=== PATIENT | male | born 1935 ===

== ENCOUNTER 2017-06-06 10:27 | Inpatient (IN) | payer MEDICARE, OTHER ==
[2017-06-06] MEDS ORDERED: Sodium Chloride 0.9% 500 ML IV STA (11:29)
[2017-06-06 11:46] LABS: BASO % 0.8 % (0.0-2.0); EOS # 0.1 K/uL (0.0-0.7); EOS % 1.1 % (0.0-4.0); HEMATOCRIT 40.1 % (35.0-51.0); LYMPH # 1.5 K/uL (1.0-4.3); LYMPH % 31.1 % (20.0-40.0); MEAN CELL VOLUME 94.3 fL (80.0-94.0); MEAN CORPUSCULAR HEMOGLOBIN 32.3 pg (27.0-31.0); MEAN CORPUSCULAR HGB CONC 34.3 g/dL (33.0-37.0); MEAN PLATELET VOLUME 8.7 fL (7.2-11.7); MONO # 0.6 K/uL (0.0-0.8); MONO % 11.2 % (0.0-10.0); NRBC % 0.1 % (0.0-2.0); WHITE BLOOD COUNT 4.9 K/uL (4.8-10.8)
[2017-06-06 11:47] LABS: RBC URINE 30 /hpf (0-3); URINE BACTERIA RARE (<OCC); URINE BILIRUBIN NEGATIVE (NEGATIVE); URINE BLOOD 3+ (NEGATIVE); URINE COLOR Yellow (YELLOW); URINE GLUCOSE (UA) NORMAL (Normal); URINE KETONE NEGATIVE (NEGATIVE); URINE LEUKOCYTE ESTERASE TRACE Leu/uL (Negative); URINE PROTEIN NEGATIVE (NEGATIVE); URINE UROBILINOGEN NORMAL mg/dL (0.2-1.0); WBC URINE 7 /hpf (0-5)
[2017-06-06 11:52] LABS: POTASSIUM 4.2 mmol/L (3.6-5.2)
[2017-06-06 11:54] LABS: BILIRUBIN,TOTAL 0.8 mg/dL (0.2-1.3)
[2017-06-06 11:55] LABS: TOTAL PROTEIN 8.8 g/dL (6.3-8.3)
[2017-06-06 11:56] LABS: CALCIUM 9.5 mg/dl (8.6-10.4)
--- NOTE | 2017-06-06 12:50 | C.PDOC ---
History Of Present Illness 81 y/o male presents to the ED c/o intermittent right flank pain for a week and hematuria since yesterday. Patient notes pain is better now. Denies fever. No nausea or vomiting. Time Seen by Provider: 06/06/17 10:46 Chief Complaint (Nursing): Male Genitourinary History Per: Patient History/Exam Limitations: no limitations Onset/Duration Of Symptoms: Days (Right flank for 1 week. Hematuria since yesterday.), Intermittent Episodes Current Symptoms Are (Timing): Still Present Severity: Mild Quality Of Discomfort: "Pain" Associated Symptoms: Other (hematuria) Recent travel outside of the [place]: No Additional History Per: Patient Past Medical History Reviewed: Historical Data, Nursing Documentation, Vital Signs Vital Signs: Last Vital Signs Temp 97.4 F L 06/06/17 16:30 Pulse 80 06/06/17 16:30 Resp 20 06/06/17 16:30 BP 145/77 06/06/17 16:30 Pulse Ox 96 06/06/17 16:30 - Medical History PMH: HTN, Hypercholesterolemia Surgical History: Tonsillectomy Family History: States: Unknown Family Hx - Social History Hx Alcohol Use: No Hx Substance Use: No - Immunization History Hx Tetanus Toxoid Vaccination: No Hx Influenza Vaccination: Yes Hx Pneumococcal Vaccination: Yes Review Of Systems Except As Marked, All Systems Reviewed And Found Negative. Constitutional: Negative for: Fever Gastrointestinal: Negative for: Nausea, Vomiting Genitourinary: Positive for: Hematuria, Other (Right flank pain) Physical Exam - Physical Exam Appears: Non-toxic, No Acute Distress Skin: Warm, Dry Head: Atraumatic, Normacephalic Oral Mucosa: Moist Cardiovascular: Rhythm Regular Respiratory: Normal Breath Sounds, No Rales, No Rhonchi, No Wheezing Gastrointestinal/Abdominal: Soft, No Tenderness Back: Normal Inspection, No CVA Tenderness Neurological/Psych: Oriented x3, Normal Speech, Normal Cognition ED Course And Treatment - Laboratory Results Result Diagrams: 06/06/17 11:37 06/06/17 11:37 O2 Sat by Pulse Oximetry: 98 (RA) Pulse Ox Interpretation: Normal - CT Scan/US Abdomen/pelvis CT Other Rad Studies (CT/US): Read By Radiologist, Radiology Report Reviewed CT/US Interpretation: Accession No. : [id number]. Patient Name / ID : BERTHA DENIS / [id number]. Exam Date : 06/06/2017 11:48:07 ( Approved ). Study Comment : Sex / Age : M / 81Y. Creator : Nancy Baxter MD. Dictator : [employer] : Founder & Ceo : Nancy Baxter MD. Approver2 : Report Date : 06/06/2017 12:57:13. My Comment : . PROCEDURE: CT Abdomen and Pelvis without Oral or IV contrast. HISTORY: R flank pain/hematuria. COMPARISON: None available. TECHNIQUE: Contiguous axial images of the abdomen and pelvis. No oral or IV contrast administered. Coronal and Sagittal reformats generated and reviewed. Radiation dose: Total exam DLP = 375.36 mGy- cm. This CT exam was performed using one or more of the following dose reduction techniques: Automated exposure control, adjustment of the mA and/or kV according to patient size, and/or use of iterative reconstruction technique. FINDINGS: There is limited evaluation of the solid organs without the administration of IV contrast. LOWER THORAX: No visible consolidation, pleural effusion, or pneumothorax. LIVER: Unremarkable. GALLBLADDER AND BILE DUCTS: Unremarkable. PANCREAS: Unremarkable. SPLEEN: Unremarkable. ADRENALS: Unremarkable. KIDNEYS AND URETERS: 7 mm mid right ureteral calculus (series 3, image 91) with mild to moderate proximal hydroureteronephrosis. 2 mm punctate right renal calculus, nonobstructing. Left kidney appears unremarkable except for probable lower pole parapelvic cyst. BLADDER: The urinary bladder appears unremarkable. REPRODUCTIVE: The prostate gland measures approximately 3.4 x 4.1 cm. APPENDIX: The appendix appears within normal limits of caliber. No secondary signs of acute appendicitis. BOWEL: The stomach is nondistended. Lack of oral contrast limits evaluation for bowel pathology. The bowel loops appear within normal limits of caliber without evidence of intestinal obstruction. Diverticulosis without CT evidence of acute diverticulitis. PERITONEUM: No significant free fluid. No definite free air. LYMPH NODES: No bulky lymphadenopathy identified. VASCULATURE: Atherosclerotic calcifications of the aorta and branches. No aortic aneurysm. BONES: Multilevel degenerative changes. Mild curvature of the lumbar spine convex to the left. OTHER FINDINGS: Bilateral inguinal hernias containing fat and vessels. 7 mm fat containing umbilical hernia. IMPRESSION: 7 mm mid right ureteral calculus with mild to moderate proximal hydroureteronephrosis. 2 mm punctate right renal calculus, nonobstructing. Additional incidental findings as above. Progress Note: Plans: CT abd/Pel w/o contrast, IV fluids, UA, blood work up. Patient refused pain medication, stating he is "not in pain now". case was d/w urolgist who sts he will do stent tomorrow and requests patient to be NPO after midnight. Case was d/w pt's PMD who accepted patient to her service for admission. Cipro and Flomax po were ordered. Disposition - Disposition Disposition: HOSPITALIZED Disposition Time: 14:06 Condition: FAIR - Clinical Impression Clinical Impression: Ureterolithiasis, Hydronephrosis - Scribe Statement The provider has reviewed the documentation as recorded by the Scribe Lev lentz All medical record entries made by the Scribe were at my direction and personally dictated by me. I have reviewed the chart and agree that the record accurately reflects my personal performance of the history, physical exam, medical decision making, and the department course for this patient. I have also personally directed, reviewed, and agree with the discharge instructions and disposition. Decision To Admit - Pt Status Changed To: Hospital Disposition Of: Inpatient - Admit Certification Admit to Inpatient:: After my assessment, the patient will require hospitalization for at least two midnights. This is because of the severity of symptoms shown, intensity of services needed, and/or the medical risk in this patient being treated as an outpatient. - InPatient: Physician Admission Certification: I certify that this patient requires 2 or more midnights of care for the following reason:: Patient will need OR procedure. - . Bed Request Type: Regular Patient Diagnosis: Ureterolithiasis, Hydronephrosis
--- NOTE | 2017-06-06 12:58 | CT ---
PROCEDURE: CT Abdomen and Pelvis without Oral or IV contrast. HISTORY: R flank pain/hematuria COMPARISON: None available. TECHNIQUE: Contiguous axial images of the abdomen and pelvis. No oral or IV contrast administered. Coronal and Sagittal reformats generated and reviewed. Radiation dose: Total exam DLP = 375.36 mGy-cm. This CT exam was performed using one or more of the following dose reduction techniques: Automated exposure control, adjustment of the mA and/or kV according to patient size, and/or use of iterative reconstruction technique. FINDINGS: There is limited evaluation of the solid organs without the administration of IV contrast. LOWER THORAX: No visible consolidation, pleural effusion, or pneumothorax. LIVER: Unremarkable. GALLBLADDER AND BILE DUCTS: Unremarkable. PANCREAS: Unremarkable. SPLEEN: Unremarkable. ADRENALS: Unremarkable. KIDNEYS AND URETERS: 7 mm mid right ureteral calculus (series 3, image 91) with mild to moderate proximal hydroureteronephrosis. 2 mm punctate right renal calculus, nonobstructing. Left kidney appears unremarkable except for probable lower pole parapelvic cyst. BLADDER: The urinary bladder appears unremarkable. REPRODUCTIVE: The prostate gland measures approximately 3.4 x 4.1 cm. APPENDIX: The appendix appears within normal limits of caliber. No secondary signs of acute appendicitis. BOWEL: The stomach is nondistended. Lack of oral contrast limits evaluation for bowel pathology. The bowel loops appear within normal limits of caliber without evidence of intestinal obstruction. Diverticulosis without CT evidence of acute diverticulitis. PERITONEUM: No significant free fluid. No definite free air. LYMPH NODES: No bulky lymphadenopathy identified. VASCULATURE: Atherosclerotic calcifications of the aorta and branches. No aortic aneurysm. BONES: Multilevel degenerative changes. Mild curvature of the lumbar spine convex to the left. OTHER FINDINGS: Bilateral inguinal hernias containing fat and vessels. 7 mm fat containing umbilical hernia. IMPRESSION: 7 mm mid right ureteral calculus with mild to moderate proximal hydroureteronephrosis. 2 mm punctate right renal calculus, nonobstructing. Additional incidental findings as above.
--- NOTE | 2017-06-06 16:26 | CP.PCM.HP ---
History of Present Illness - History of Present Illness History of Present Illness: cc: right flank pain PT is an 81 year old male well know to me who presented to the ER with a 6 days history of right flank and right mid to lower abd/pelvic pain. PT noted gross hematuria last night and decided to come to the ER. Pt denies any trauma or fever. Pt denies dysuria but has noted some difficulty voding. Pt has a history of prostate surgery in 1993 due to "enlarged prostate" but denies cancer. In the ER createnine noted to be 1.6, base line 1.3. Pt found to have a UG stone and unilateral hydro. Socia: no tob or etoh Family; parents deseased allergy: nkda PMH: hypertension elevated cholesterol ho prostate surgery for "big prostate" denies ho ca Vertigo Insominia Gastritis Meds; Diovan hctz 80/12.5 mg po qd. zocor 20mg daily Omeprazole 40m po qd Meclizine 25 mg pro prn Temazepam 15 qsh prn insomnia Present on Admission - Present on Admission Any Indicators Present on Admission: No Review of Systems - Constitutional Constitutional: absent: Chills, Fever, Headache, Malaise, Night Sweats, Weight Loss - Cardiovascular Cardiovascular: absent: Chest Pain with Activity, Dyspnea on Exertion - Respiratory Respiratory: absent: Cough - Gastrointestinal Gastrointestinal: Abdominal Pain. absent: Constipation, Diarrhea - Genitourinary Genitourinary: Difficulty Urinating, Hematuria. absent: Freq UTI - Reproductive: Male Reproductive:Male: Pelvic Pain - Musculoskeletal Musculoskeletal: absent: Muscle Cramps, Muscle Weakness - Neurological Neurological: absent: Abnormal Gait, Behavioral Changes - Psychiatric Psychiatric: absent: Behavioral Changes Past Patient History - Past Social History Smoking Status: Never Smoked - CARDIAC Hx Hypercholesterolemia: Yes Hx Hypertension: Yes - ENDOCRINE/METABOLIC Hx Diabetes Mellitus Type 2: Yes (NO MEDS) - PSYCHIATRIC Hx Substance Use: No - SURGICAL HISTORY Hx Tonsillectomy: Yes - ANESTHESIA Hx Anesthesia: Yes Hx Anesthesia Reactions: No Meds Allergies/Adverse Reactions: Allergies Allergy/AdvReac Type Severity Reaction Status Date / Time No Known Allergies Allergy Verified 06/06/17 10:36 Physical Exam - Constitutional Appears: Non-toxic, No Acute Distress - Head Exam Head Exam: NORMAL INSPECTION - Eye Exam Eye Exam: EOMI, Normal appearance - ENT Exam ENT Exam: Mucous Membranes Moist - Respiratory Exam Respiratory Exam: Clear to Auscultation Bilateral - Cardiovascular Exam Cardiovascular Exam: REGULAR RHYTHM, RRR, +S1 - GI/Abdominal Exam GI & Abdominal Exam: Normal Bowel Sounds, Soft. absent: Guarding, Hyperactive Bowel Sounds, Pulsatile Mass, Rebound, Tenderness - Rectal Exam Rectal Exam: Deferred - Extremities Exam Extremities exam: Positive for: full ROM. Negative for: joint swelling, pedal edema Results - Vital Signs Recent Vital Signs: Last Vital Signs Temp 97.5 F L 06/06/17 10:33 Pulse 69 06/06/17 15:50 Resp 18 06/06/17 15:50 BP 114/62 06/06/17 15:50 Pulse Ox 96 06/06/17 15:50 - Labs Result Diagrams: 06/06/17 11:37 06/06/17 11:37 Labs: Laboratory Results - last 24 hr 06/06/17 06/06/17 06/06/17 11:37 11:37 11:37 WBC 4.9 RBC 4.25 L Hgb 13.8 Hct 40.1 MCV 94.3 H MCH 32.3 H MCHC 34.3 RDW 13.0 Plt Count 262 MPV 8.7 Neut % (Auto) 55.8 Lymph % (Auto) 31.1 [place] % (Auto) 11.2 H Eos % (Auto) 1.1 Baso % (Auto) 0.8 Neut # 2.8 Lymph # 1.5 [place] # 0.6 Eos # 0.1 Baso # 0.0 Sodium 140 Potassium 4.2 Chloride 100 Carbon Dioxide 23 Anion Gap 21 H BUN 37 H Creatinine 1.6 H Est GFR ( Amer) 50 Est GFR (Non-Af Amer) 42 Random Glucose 97 Calcium 9.5 Total Bilirubin 0.8 AST 28 ALT 36 Alkaline Phosphatase 69 Total Protein 8.8 H Albumin 4.3 Globulin 4.5 H Albumin/Globulin Ratio 1.0 Urine Color Yellow Urine Clarity Hazy Urine pH 5.0 Ur Specific [place] 1.018 Urine Protein Negative Urine Glucose (UA) Normal Urine Ketones Negative Urine Blood 3+ H Urine Nitrate Negative Urine Bilirubin Negative Urine Urobilinogen Normal Ur Leukocyte Esterase Trace Urine WBC (Auto) 7 H Urine RBC (Auto) 30 H Ur Squamous Epith Cells 4 Urine Bacteria Rare Assessment & Plan - Assessment and Plan (Free Text) Assessment: Acute unilateral hydroneprhosis renal stone pre renal azotemia , base line creat 1.3 hematuria Hth Plan: admit hydrate urolgy consul IVF urine culture gi and dvt prophylaxis
[2017-06-06] MEDS: Sodium Chloride 0.45% 1,000 ML IV SCH (17:59)
[2017-06-07] MEDS: Sodium Chloride 0.45% 1,000 ML IV SCH (07:18)
[2017-06-07] MEDS ORDERED: Iohexol 240 (50 ml) ONE (07:29)
[2017-06-07 08:18] LABS: CHLORIDE 100 mmol/L (98-107); SODIUM 141 mmol/L (132-148)
[2017-06-07 08:19] LABS: POTASSIUM 3.9 mmol/L (3.6-5.2)
[2017-06-07 08:21] LABS: GFR AFRICAN-AMERICAN > 60
[2017-06-07 08:22] LABS: BLOOD UREA NITROGEN 27 mg/dL (9-20); CALCIUM 9.4 mg/dl (8.6-10.4); CARBON DIOXIDE 26 mmol/L (22-30); GLUCOSE,RANDOM 107 mg/dL (75-110)
[2017-06-07] MEDS ORDERED: Pantoprazole 20 mg EC Tab PO SCH (10:00)
[2017-06-07] MEDS ORDERED: Lactated Ringer's 1,000 ML IV ONE ×2 (10:35)
[2017-06-07] MEDS ORDERED: cefTRIAXone IV 1 gm in Dextros 50 ML IVPB ONE (11:19)
[2017-06-07] MEDS ORDERED: Lidocaine 2% Jelly (Uro-Jet) ONE (11:19)
[2017-06-07] MEDS ORDERED: Propofol 10 mg/ml Inj (20 ML) ONE (11:46)
--- NOTE | 2017-06-07 11:46 | CP.PCM.CON ---
Past Patient History - Past Medical History & Family History Past Medical History?: Yes - Past Social History Smoking Status: Never Smoked - CARDIAC Hx Hypercholesterolemia: Yes Hx Hypertension: Yes - ENDOCRINE/METABOLIC Hx Diabetes Mellitus Type 2: Yes (NO MEDS) - MUSCULOSKELETAL/RHEUMATOLOGICAL Hx Falls: No - PSYCHIATRIC Hx Substance Use: No - SURGICAL HISTORY Hx Tonsillectomy: Yes - ANESTHESIA Hx Anesthesia: Yes Hx Anesthesia Reactions: No Meds Allergies/Adverse Reactions: Allergies Allergy/AdvReac Type Severity Reaction Status Date / Time No Known Allergies Allergy Verified 06/06/17 10:36 - Medications Medications: Current Medications Sodium Chloride (Sodium Chloride 0.45%) 1,000 mls @ 70 mls/hr IV .[id number] [facility] Last Admin: 06/07/17 07:18 Dose: Not Given Losartan Potassium (Cozaar) 50 mg PO DAILY [facility] Last Admin: 06/07/17 10:09 Dose: 50 mg Pantoprazole Sodium (Protonix Ec Tab) 20 mg PO DAILY [facility] Results - Vital Signs Recent Vital Signs: Last Vital Signs Temp 98.2 F 06/07/17 00:00 Pulse 73 06/07/17 00:00 Resp 20 06/07/17 00:00 BP 132/75 06/07/17 00:00 Pulse Ox 97 06/07/17 00:00 - Labs Result Diagrams: 06/06/17 11:37 06/07/17 07:52 Labs: Laboratory Results - last 24 hr 06/06/17 06/06/17 06/06/17 11:37 11:37 11:37 WBC 4.9 RBC 4.25 L Hgb 13.8 Hct 40.1 MCV 94.3 H MCH 32.3 H MCHC 34.3 RDW 13.0 Plt Count 262 MPV 8.7 Neut % (Auto) 55.8 Lymph % (Auto) 31.1 [place] % (Auto) 11.2 H Eos % (Auto) 1.1 Baso % (Auto) 0.8 Neut # 2.8 Lymph # 1.5 [place] # 0.6 Eos # 0.1 Baso # 0.0 Sodium 140 Potassium 4.2 Chloride 100 Carbon Dioxide 23 Anion Gap 21 H BUN 37 H Creatinine 1.6 H Est GFR ( Amer) 50 Est GFR (Non-Af Amer) 42 Random Glucose 97 Calcium 9.5 Total Bilirubin 0.8 AST 28 ALT 36 Alkaline Phosphatase 69 Total Protein 8.8 H Albumin 4.3 Globulin 4.5 H Albumin/Globulin Ratio 1.0 Urine Color Yellow Urine Clarity Hazy Urine pH 5.0 Ur Specific [place] 1.018 Urine Protein Negative Urine Glucose (UA) Normal Urine Ketones Negative Urine Blood 3+ H Urine Nitrate Negative Urine Bilirubin Negative Urine Urobilinogen Normal Ur Leukocyte Esterase Trace Urine WBC (Auto) 7 H Urine RBC (Auto) 30 H Ur Squamous Epith Cells 4 Urine Bacteria Rare 06/07/17 07:52 WBC RBC Hgb Hct MCV MCH MCHC RDW Plt Count MPV Neut % (Auto) Lymph % (Auto) [place] % (Auto) Eos % (Auto) Baso % (Auto) Neut # Lymph # [place] # Eos # Baso # Sodium 141 Potassium 3.9 Chloride 100 Carbon Dioxide 26 Anion Gap 19 BUN 27 H Creatinine 1.3 Est GFR ( Amer) > 60 Est GFR (Non-Af Amer) 53 Random Glucose 107 Calcium 9.4 Total Bilirubin AST ALT Alkaline Phosphatase Total Protein Albumin Globulin Albumin/Globulin Ratio Urine Color Urine Clarity Urine pH Ur Specific [place] Urine Protein Urine Glucose (UA) Urine Ketones Urine Blood Urine Nitrate Urine Bilirubin Urine Urobilinogen Ur Leukocyte Esterase Urine WBC (Auto) Urine RBC (Auto) Ur Squamous Epith Cells Urine Bacteria Assessment & Plan - Assessment and Plan (Free Text) Assessment: IMP: R RENAL COLIC R URETERAL CALCULUS HX OF HYPERTENSION HX OF BPH AZOTEMIA Plan: FOR CYSTO STENT INSERTION FULL NOTE T/F THANK YOU YS - Date & Time Date: 06/07/17 Time: 11:20
--- NOTE | 2017-06-07 12:19 | PCM.SURG1 ---
Surgeon's Initial Post Op Note - Surgeon's Notes Surgeon: thiago hull Lap Polisher: none Type of Anesthesia: IV Sedation Pre-Operative Diagnosis: r renal colic. r ureteral calculus Operative Findings: same. R hydronephrosis. Urethral stricture Post-Operative Diagnosis: same Operation Performed: cysto, urethral dilation. r retrograde pyelogram. insertion of r ureteral stent Specimen/Specimens Removed: urine Estimated Blood Loss: EBL {In ML}: 0 Blood Products Given: N/A Date of Surgery/Procedure: 06/07/17 Time of Surgery/Procedure: 12:15
[2017-06-07] MEDS ORDERED: HYDROmorphone 0.5 mg/0.5 ml ISec IVP PRN (12:30)
[2017-06-07] MEDS ORDERED: Lactated Ringer's 1,000 ML IV SCH (12:30)
--- NOTE | 2017-06-07 13:15 | RAD ---
PROCEDURE: Intraoperative Fluoroscopy. HISTORY: RT. URETER CALCULI FINDINGS: Fluoroscopic assistance was provided. 45.3 seconds fluoroscopy time utilized during this procedure. Radiation dose = 0.13797 mGy additional details
--- NOTE | 2017-06-07 14:17 | RAD ---
HISTORY: RT. URETER COMPARISON: Comparison made with prior CT scan abdomen pelvis 06/06/2017 FINDINGS: BOWEL: No evidence of acute mechanical bowel obstruction. BONES: Multilevel degenerative spondylosis of the lumbar and to a lesser degree lower thoracic spine. Levoscoliosis unchanged. The OTHER FINDINGS: Re- demonstrated is an elliptical shaped approximately 7 mm calcification mid right ureter region. This is seen to much better advantage on prior CT scan. IMPRESSION: Right ureteral calculus again seen however please refer to prior CT scan of the abdomen pelvis for additional details
--- NOTE | 2017-06-07 15:00 | CP.PCM.DIS ---
Provider - Provider Date of Admission: 06/06/17 14:02 Attending physician: rBe Matthews MD Time Spent in preparation of Discharge (in minutes): 30 Hospital Course - Lab Results Lab Results: Micro Results 06/06/17 11:28 Urine Urine Culture - Final No Growth (<1,000 CFU/ML) Most Recent Lab Values WBC 4.9 K/uL (4.8-10.8) 06/06/17 11:37 RBC 4.25 Mil/uL (4.40-5.90) L 06/06/17 11:37 Hgb 13.8 g/dL (12.0-18.0) 06/06/17 11:37 Hct 40.1 % (35.0-51.0) 06/06/17 11:37 MCV 94.3 fL (80.0-94.0) H 06/06/17 11:37 MCH 32.3 pg (27.0-31.0) H 06/06/17 11:37 MCHC 34.3 g/dL (33.0-37.0) 06/06/17 11:37 RDW 13.0 % (11.5-14.5) 06/06/17 11:37 Plt Count 262 K/uL (130-400) 06/06/17 11:37 MPV 8.7 fL (7.2-11.7) 06/06/17 11:37 Neut % (Auto) 55.8 % (50.0-75.0) 06/06/17 11:37 Lymph % (Auto) 31.1 % (20.0-40.0) 06/06/17 11:37 [place] % (Auto) 11.2 % (0.0-10.0) H 06/06/17 11:37 Eos % (Auto) 1.1 % (0.0-4.0) 06/06/17 11:37 Baso % (Auto) 0.8 % (0.0-2.0) 06/06/17 11:37 Neut # 2.8 K/uL (1.8-7.0) 06/06/17 11:37 Lymph # 1.5 K/uL (1.0-4.3) 06/06/17 11:37 [place] # 0.6 K/uL (0.0-0.8) 06/06/17 11:37 Eos # 0.1 K/uL (0.0-0.7) 06/06/17 11:37 Baso # 0.0 K/uL (0.0-0.2) 06/06/17 11:37 Sodium 141 mmol/L (132-148) 06/07/17 07:52 Potassium 3.9 mmol/L (3.6-5.2) 06/07/17 07:52 Chloride 100 mmol/L (98-107) 06/07/17 07:52 Carbon Dioxide 26 mmol/L (22-30) 06/07/17 07:52 Anion Gap 19 (10-20) 06/07/17 07:52 BUN 27 mg/dL (9-20) H 06/07/17 07:52 Creatinine 1.3 MG/DL (0.8-1.5) 06/07/17 07:52 Est GFR ( Amer) > 60 06/07/17 07:52 Est GFR (Non-Af Amer) 53 06/07/17 07:52 Random Glucose 107 mg/dL (75-110) 06/07/17 07:52 Calcium 9.4 mg/dl (8.6-10.4) 06/07/17 07:52 Total Bilirubin 0.8 mg/dL (0.2-1.3) 06/06/17 11:37 AST 28 U/L (17-59) 06/06/17 11:37 ALT 36 U/L (21-72) 06/06/17 11:37 Alkaline Phosphatase 69 U/L (38-126) 06/06/17 11:37 Total Protein 8.8 g/dL (6.3-8.3) H 06/06/17 11:37 Albumin 4.3 g/dL (3.5-5.0) 06/06/17 11:37 Globulin 4.5 gm/dL (2.2-3.9) H 06/06/17 11:37 Albumin/Globulin Ratio 1.0 (1.0-2.1) 06/06/17 11:37 Urine Color Yellow (YELLOW) 06/06/17 11:37 Urine Clarity Hazy (Clear) 06/06/17 11:37 Urine pH 5.0 (5.0-8.0) 06/06/17 11:37 Ur Specific [place] 1.018 (1.003-1.030) 06/06/17 11:37 Urine Protein Negative mg/dL (NEGATIVE) 06/06/17 11:37 Urine Glucose (UA) Normal mg/dL (Normal) 06/06/17 11:37 Urine Ketones Negative mg/dL (NEGATIVE) 06/06/17 11:37 Urine Blood 3+ (NEGATIVE) H 06/06/17 11:37 Urine Nitrate Negative (NEGATIVE) 06/06/17 11:37 Urine Bilirubin Negative (NEGATIVE) 06/06/17 11:37 Urine Urobilinogen Normal mg/dL (0.2-1.0) 06/06/17 11:37 Ur Leukocyte Esterase Trace [place]/uL (Negative) 06/06/17 11:37 Urine WBC (Auto) 7 /hpf (0-5) H 06/06/17 11:37 Urine RBC (Auto) 30 /hpf (0-3) H 06/06/17 11:37 Ur Squamous Epith Cells 4 /hpf (0-5) 06/06/17 11:37 Urine Bacteria Rare (<OCC) 06/06/17 11:37 - Hospital Course Hospital Course: Pt admited with right flank pain, kidney stone with resutling hydronephrois and pre renal azotemia. Pt admitted, hydrated, and had ureteral stent placed. Pt was started on abx and flomas. Creat decreased to 1.3 by day 2. Discharge Exam - Head Exam Head Exam: ATRAUMATIC, NORMAL INSPECTION - ENT Exam ENT Exam: Mucous Membranes Moist - Respiratory Exam Respiratory Exam: NORMAL BREATHING PATTERN Discharge Plan - Follow Up Plan Condition: STABLE Instructions: Levofloxacin (By mouth), Tamsulosin (By mouth), Cystoscopy (DC), Urethral Stent Placement (DC), Hydronephrosis (DC), Ureteral Stones (DC) Referrals: Bre Matthews MD [Staff Provider] -
[2017-06-07 15:40] VITALS: BP 144/72; PULSE 84; RESP 20; TEMP 97.3; O2SAT 96
[2017-06-08] MEDS ORDERED: Home Med 1 UNIT (Omeprazole [Omeprazole] 40 MG) PO SCH (10:00)
--- NOTE | 2017-06-10 06:03 | OP ---
PROCEDURE DATE: 06/07/2017 PREOPERATIVE DIAGNOSES: 1. Right renal colic. 2. Right ureteral calculus. POSTOPERATIVE DIAGNOSES: 1. Right renal colic. 2. Right ureteral calculus. 3. Urethral stricture. PROCEDURE: 1. Cystoscopy. 2. Urethral dilation. 3. Right retrograde ureteropyelogram. 4. Insertion of right ureteral stent. SURGEON: Silvina Moore MD Procedure was performed under video endoscopic control as well as under fluoroscopic control. DESCRIPTION OF PROCEDURE: The patient was placed in lithotomy position. Genitalia prepped and draped sterilely. A pipelines laborer film of the abdomen was performed. Procedure was performed under fluoroscopic control. The pipelines laborer film of the abdomen did not demonstrate the calcification conclusively. However, subsequent review revealed the calcification at the level of the sacrum and somewhat obscured by the bony structures of the iliac bony structures. The stone was more readily and easily viewed on the fluoroscopic views. The patient received perioperative antibiotics. The patient was placed in the lithotomy position. Genitalia prepped and draped sterilely. Anesthesia was managed by the anesthesiologist. A 22-Ethiopian cystoscope sheath was introduced under direct vision. The urethra was inspected. There was noted to be stricture of the bulbous urethra. The ureteral catheter was passed through the stricture under direct visual control. The urethral stricture was dilated over the ureteral catheter by passes of the 22-Ethiopian cystoscope sheath. The prostate was inspected. There was evidence of previous prostatic resection. There was no bladder neck contraction. The bladder was inspected. There was moderate bladder trabeculation. There was no bladder tumor. There was no bladder stone. The right ureteral orifice was identified. A 0.035-inch guidewire inserted into the right ureteral orifice. The guidewire encountered obstruction at the level of the stone as determined by tactile sensation and as well as determined by fluoroscopic views. Subsequent manipulation of an open-end catheter and the guidewire allowed both to be passed proximally. The guidewire was passed up to the level of the kidney. The opening catheter was passed through the proximal ureter. The guidewire was removed. obtained. The urine was sent for bacteriologic examination. Iodinated contrast dye was instilled and demonstrated moderate hydronephrosis. The guidewire was reinserted. A 6-Ethiopian multi-length stent was inserted over the guidewire. Proper stent position was confirmed with fluoroscopy and endoscopy. The guidewire was removed. The stents were left in place. The bladder was drained. Cystoscope sheath removed. Exam under anesthesia/bimanual examination was performed. There was no abnormal pelvic mass fixation or induration. The patient tolerated the procedure without complication. Silvina Moore MD cc: MD Bre Montilla MD
--- NOTE | 2017-06-10 07:45 | CON ---
DATE: 06/07/2017 Urology consultation was requested by Dr. Bre Matthews. Urology consultation was filled by Dr. Silvina Moore. REASON FOR CONSULTATION: Hematuria and renal colic. HISTORY OF PRESENT ILLNESS: The patient is an 81-year-old admitted with renal colic. The patient is in otherwise [id number] health. The patient reports no history previously urolithiasis. The patient did have history of previous prostate surgery. The patient presents with a 2- to 3-day history of gross hematuria. painless hematuria, intermittent pain with hematuria. Yesterday, the patient developed right flank pain and right lower quadrant pain. No fever or pruritus. No nausea, vomiting. The patient voids with fair urinary stream. No history of urolithiasis. The patient presented to the emergency on 06/06. The patient underwent CT scan which revealed a 7-mm obstructing right ureteral calculus at the level of the mid-ureter. The patient reports that he is still having intermittent pain, although less. PHYSICAL EXAMINATION GENERAL: The patient is a well-developed, well-nourished elderly male. The patient is awake and alert. ABDOMEN: Soft and nontender. There is mild right CVA tenderness. GENITALIA: Without Inflammation. BACK: Mild right CVA tenderness. LABORATORY DATA: Reviewed, renal function is normal. CT scan reveals an obstructing stone at approximately the L4 level. There is marked right hydronephrosis with secondary kinking of the upper ureter. IMPRESSION: Right hydronephroses, right renal calculus, hematuria. RECOMMENDATION AND PLAN: Abdominal x-ray. For cystoscopy and stent insertion. Possible further therapy to follow including lithotripsy, extracorporeal shockwave lithotripsy or laser ureteral lithotripsy. Further therapy to follow according to the patient's clinical course as well as results as above. We will discuss with attending physician. I have discussed the matter with the patient. Silvina Moore MD cc: Bre Matthews MD
== END 2017-06-07 17:10 | disposition home or self-care (01) | DRG 694 ==
LOC: C.ER 10:27 → C.9E 14:02 → C.3T 14:38
PROVIDERS: ADMIT Internal Medicine; ATTEND Internal Medicine
PROC: BT1DYZZ Fluoroscopy of Right Kidney, Ureter and Bladder using Other Contrast (ICD-10-PCS; 2017-06-07)
PROC: 0T768DZ Dilation of Right Ureter with Intraluminal Device, Via Natural or Artificial Opening Endoscopic (ICD-10-PCS; principal; 2017-06-07 12:15)
DX: N20.2 Calculus of kidney with calculus of ureter (principal); N13.39 Other hydronephrosis; R31.9 Hematuria, unspecified; N35.9 Urethral stricture, unspecified; I10 Essential (primary) hypertension; E78.00 Pure hypercholesterolemia, unspecified; N40.1 Benign prostatic hyperplasia with lower urinary tract symptoms; R79.89 Other specified abnormal findings of blood chemistry

== ENCOUNTER 2017-08-19 06:31 | Day surgery (SDC) | payer MEDICARE, OTHER ==
[2017-08-19] MEDS ORDERED: Lidocaine 2% Jelly (Uro-Jet) ONE (09:20)
[2017-08-19] MEDS ORDERED: Iohexol 240 (50 ml) ONE (09:20)
[2017-08-19] MEDS ORDERED: Lactated Ringer's 1,000 ML IV ONE (09:23)
[2017-08-19] MEDS ORDERED: Lidocaine Hydrochloride 5 ML INJ ONE (09:32)
[2017-08-19] MEDS ORDERED: Propofol 10 mg/ml Inj (20 ML) ONE (09:32)
[2017-08-19] MEDS ORDERED: Midazolam 2 MG/2 ML VIAL ONE (09:32)
[2017-08-19] MEDS ORDERED: ePHEDrine 50 mg/ml Inj ONE (09:46)
[2017-08-19] MEDS ORDERED: Gentamicin 80 mg in 0.9% NS 80 MG/100 ML BAG IVPB ONE (10:20)
--- NOTE | 2017-08-19 10:20 | PCM.SURG1 ---
Surgeon's Initial Post Op Note - Surgeon's Notes Surgeon: Benny Moore Cured Meats Supervisor: none Type of Anesthesia: General LMA Pre-Operative Diagnosis: R uretersal calculus Operative Findings: same Post-Operative Diagnosis: same Operation Performed: cysto. R uretroscopy. Laser lithotripsy. Stone basketing. stent insertion Specimen/Specimens Removed: urine. stone Estimated Blood Loss: EBL {In ML}: 0 Blood Products Given: N/A Post-Op Condition: Good Date of Surgery/Procedure: 08/19/17 Time of Surgery/Procedure: 10:20
[2017-08-19 11:57] VITALS: BP 132/90; PULSE 92; RESP 18; TEMP 98; O2SAT 100
--- NOTE | 2017-08-19 14:22 | RAD ---
PROCEDURE: Intraoperative Fluoroscopy. HISTORY: RT. URETER STONE FINDINGS: Fluoroscopic assistance was provided for right retrograde and stent placement. Total fluoroscopic time (continuous mode) utilized during the procedure: 17.6 seconds. Submitted images from the current procedure: 5.0. Please refer to the operative report from
--- NOTE | 2017-08-19 16:49 | RAD ---
HISTORY: RT. URETER STONE COMPARISON: 08/02/2017. FINDINGS: BOWEL: Normal. No obstruction. No free air. BONES: Normal. OTHER FINDINGS: Questionable calculus overlying the distal aspect of the double-J stent. The finding is marked on the study for review. IMPRESSION: No significant interval change compared to the prior examination(s).
--- NOTE | 2017-08-21 21:09 | OP ---
UROLOGY OPERATIVE REPORT DATE: PREOPERATIVE DIAGNOSIS: Urolithiasis. POSTOPERATIVE DIAGNOSES: Urolithiasis. Right ureteral calculus. PROCEDURES: Cystoscopy. Urethral dilation. Right ureteroscopy. Laser ureteral lithotripsy. Right ureteral stone basketing. Insertion of right ureteral stent. OPERATING SURGEON: Silvina Moore MD. DESCRIPTION OF OPERATION: The patient received perioperative antibiotics. Project Geophysicist film of the abdomen revealed the right ureteral stent in proper position. There was a radiodensity adjacent to the right distal ureteral stent. Stone size was approximately 4 mm. The patient was placed in lithotomy position, genitalia prepped and draped sterilely. Anesthesia was applied by the anesthesiologist. Perioperative antibiotics had been administered. A 22-Pakistani cystoscope sheath was introduced under direct vision. Procedure was performed under video endoscopic control as well as under fluoroscopic control. Urethra, prostate, and bladder were inspected. 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 Dilation was performed with passing the cystoscope sheath over the guidewire, which had been passed through the stricture into the bladder. The bladder was inspected. There was no bladder tumor. There was no bladder stone. The right ureteral stent was identified. The stent was grasped with rigid grasping forceps and brought to the level of the distal end of the cystoscope sheath. A 0.035-inch guidewire was inserted into the stent and passed up to the level of kidney. The stent was removed. The 7-Pakistani mini-rigid ureteroscope was introduced through the cystoscope sheath into the bladder. A second guide was inserted through the ureteroscope into the ureteral orifice. The ureteroscope was passed in atraumatic fashion over the guidewire. Ureteroscopy was performed. The stone was encountered promptly just below the sacroiliac joint. Laser ureteral lithotripsy was performed with a Holmium laser. There was excellent fragmentation. Dusting and fragmentations were performed. Multiple fragments were removed using the 4-wire stone basket. Complete stone removal was thus accomplished. The ureter was reinspected. There were no residual stones. There was no ureteral trauma. The mucosa was intact. The ureteroscope was removed. A 6-Pakistani multi-length stent was inserted over the remaining guidewire. Proper stent position was confirmed with fluoroscopy and endoscopy. The distal suture was left to exit per urethra from the stent. Bladder was then drained. Cystoscope sheath removed. The patient tolerated the procedure without complication. Rectal examination revealed evidence of mild prostatic hypertrophy. Prostate was supple and smooth, approximately 20 gm in size without fixation, induration, or nodularity. Silvina Moore MD
== END 2017-08-19 12:19 | disposition home or self-care (01) ==
LOC: C.SDS 06:31
PROVIDERS: ATTEND Urology
DX: N20.1 Calculus of ureter (principal)
CPT/HCPCS: 52325; 52332; 74022; 82365; 82948; 87086; 88300; C1769; C2617; J0696; J1580; J7120; Q9966